=== PATIENT | male | born 1985 | race Caucasian/White ===

== ENCOUNTER 2017-07-04 20:20 | Inpatient (IN) | payer BC, OTHER ==
[~2017-07-04] VITALS: Ht 177.8 cm; Wt 99.8 kg
[2017-07-04 20:55] VITALS: BP 137/80
[2017-07-04] MEDS ORDERED: DICYCLOMINE HCL 20 MG TABLET PO PRN (21:00)
[2017-07-04] MEDS ORDERED: LOPERAMIDE HCL 2 MG CAPSULE PO PRN ×2 (21:00)
[2017-07-04] MEDS ORDERED: MAGNESIUM HYDROXIDE 30 ML LIQUID UDC PO PRN (21:00)
[2017-07-04] MEDS ORDERED: MIRALAX 17 GM POWD.PACK PO PRN (21:00)
[2017-07-04] MEDS ORDERED: MAG HYDROX/AL HYDROX/SIMETH 30 ML LIQUID UDC PO PRN (21:00)
[2017-07-04] MEDS ORDERED: IBUPROFEN 400 MG TABLET PO PRN (21:00)
[2017-07-04] MEDS ORDERED: ACETAMINOPHEN 325 MG TABLET PO PRN (21:00)
[2017-07-04] MEDS ORDERED: ONDANSETRON ODT 4 MG TAB.RAPDIS SL PRN (21:00)
[2017-07-04] MEDS ORDERED: BUPRENORPHINE HCL 2 MG TAB.SUBL SL PRN (21:00)
[2017-07-04] MEDS ORDERED: ONDANSETRON 4 MG/2 ML VIAL IM PRN (21:00)
[2017-07-04] MEDS ORDERED: AZITHROMYCIN IV 500 MG in IV DEXTROSE 5% 250 ML IV ONE (21:15)
[2017-07-04] MEDS ORDERED: CEFTRIAXONE 1 G in IV DEXTROSE 5% 50 ML IV ONE (22:00)
[2017-07-04] MEDS ORDERED: CEFTRIAXONE 1 G VIAL ONE (22:12)
[2017-07-04] MEDS ORDERED: AZITHROMYCIN 500 MG VIAL IV ONE (22:13)
[2017-07-04] MEDS: diphenhydrAMINE 50 MG CAPSULE PO PRN (22:43)
[2017-07-04 22:56] LABS: ETHANOL < 3 MG/DL (0-0)
[2017-07-04 22:58] LABS: BASOPHILS % (AUTO) 0.3 % (0.0-2.0); EOSINOPHILS # (AUTO) 0.4 K/uL (0.0-0.7); EOSINOPHILS % (AUTO) 3.5 % (0.0-7.0); HEMATOCRIT 33.2 % (36.7-47.1); HEMOGLOBIN 11.7 g/dL (12.5-16.3); LYMPHOCYTES # (AUTO) 1.4 K/uL (20.0-40.0); LYMPHOCYTES % (AUTO) 12.6 % (20.5-51.5); MEAN CORPUSCULAR HEMOGLOBIN 28.3 uug (23.8-33.4); MEAN CORPUSCULAR HGB CONC 35 g/dL (32.5-36.3); MEAN CORPUSCULAR VOLUME 80.8 fL (73.0-96.2); MONOCYTES # (AUTO) 0.7 K/uL (2.0-10.0); MONOCYTES % (AUTO) 6.5 % (0.0-11.0); NEUTROPHILS # (AUTO) 8.8 K/uL (1.8-8.9); NEUTROPHILS % (AUTO) 77.1 % (38.5-71.5); PLATELET COUNT (AUTO) 185 K/uL (152-348); RED BLOOD CELL COUNT(AUTO) 4.11 MIL/uL (4.06-5.63); WHITE BLOOD COUNT (AUTO) 11.4 K/uL (3.6-10.2)
[2017-07-04 23:10] LABS: ALANINE AMINOTRANSFERASE 87 U/L (16-63); ALKALINE PHOSPHATASE 116 U/L (50-136); AMYLASE 58 U/L (25-115); ASPARTATE AMINOTRANSFERASE 83 U/L (15-37); BILIRUBIN,TOTAL 1.1 mg/dL (0.2-1.0); CARBON DIOXIDE 27 mmol/L (21-32); CHLORIDE 93 mmol/L (98-107); GLUCOSE 101 mg/dL (74-106); LIPASE 131 U/L (73-393); POTASSIUM 3.5 mmol/L (3.5-5.1); TOTAL PROTEIN, SERUM 7.7 g/dL (6.4-8.2); UREA NITROGEN, BLOOD 9 mg/dL (7-18)
[2017-07-04] MEDS ORDERED: NICOTINE POLACRILEX 4 MG GUM-PK OF TEN BC PRN (23:15)
[2017-07-04] MEDS: CLONIDINE HCL 0.1 MG TABLET PO PRN (23:23)
[2017-07-05] VITALS: BP 116/65
[2017-07-05] MEDS ORDERED: LORAZEPAM 1 MG TABLET PO ONE (00:30)
[2017-07-05 01:07] LABS: *AMPHETAMINE, URINE NEGATIVE (NEGATIVE); *BARBITURATE, URINE NEGATIVE (NEGATIVE); *CANNABINOID, URINE NEGATIVE (NEGATIVE); *COCCAINE, URINE NEGATIVE (NEGATIVE); *OPIATE, URINE POSITIVE (NEGATIVE); *PHENCYCLIDINE SCREEN,URINE NEGATIVE (NEGATIVE)
[2017-07-05] MEDS ORDERED: FLUO40CA8 PO (01:31)
[2017-07-05 04:00] VITALS: BP 115/64
[2017-07-05 08:00] VITALS: BP 105/64
[2017-07-05] MEDS ORDERED: TUBERCULIN,PURIF.PROT.DERIV. 5 TU/0.1 ML TEST ID ONE (09:00)
[2017-07-05] MEDS: MULTIVITAMINS,THERAPEUTIC TABLET PO SCH (09:38)
[2017-07-05] MEDS ORDERED: CEFTRIAXONE 1 G in IV DEXTROSE 5% 50 ML IV SCH ×2 (10:00→22:00)
[2017-07-05] MEDS ORDERED: NICOTINE 14 MG/24HR PATCH TD PRN (10:30)
[2017-07-05] MEDS ORDERED: IBUPROFEN 600 MG TABLET PO PRN (10:45)
[2017-07-05] MEDS ORDERED: AZITHROMYCIN IV 500 MG in IV DEXTROSE 5% 250 ML IV SCH ×2 (11:00→21:00)
[2017-07-05] MEDS: FLUOXETINE HCL 20 MG CAPSULE PO SCH (11:56)
[2017-07-05 12:00] VITALS: BP 127/76
[2017-07-05 16:00] VITALS: BP 103/68
[2017-07-05] MEDS: CLONIDINE HCL 0.1 MG TABLET PO PRN (16:34)
[2017-07-05] MEDS: HYDROXYZINE PAMOATE 25 MG CAPSULE PO PRN ×2 (16:34→23:27)
[2017-07-05 20:00] VITALS: BP 111/67
[2017-07-05] MEDS: LEVOFLOXACIN 750 MG TABLET PO SCH (21:19)
[2017-07-05] MEDS: LACTOBACILLUS RHAMNOSUS GG 1 EACH CAPSULE PO SCH (21:19)
[2017-07-05] MEDS: METHOCARBAMOL 750 MG TABLET PO PRN (23:27)
[2017-07-05] MEDS: diphenhydrAMINE 50 MG CAPSULE PO PRN (23:27)
[2017-07-06] VITALS: BP 99/66
[2017-07-06 04:00] VITALS: BP 102/61
[2017-07-06] MEDS ORDERED: HYDROXYZINE PAMOATE 25 MG CAPSULE PO PRN (07:00)
[2017-07-06 08:16] VITALS: BP 100/52
[2017-07-06] MEDS: MULTIVITAMINS,THERAPEUTIC TABLET PO SCH (09:38)
[2017-07-06] MEDS: FLUOXETINE HCL 20 MG CAPSULE PO SCH (09:38)
[2017-07-06] MEDS: METHOCARBAMOL 750 MG TABLET PO PRN (09:38)
[2017-07-06] MEDS: HYDROXYZINE PAMOATE 25 MG CAPSULE PO PRN (09:38)
[2017-07-06] MEDS: LACTOBACILLUS RHAMNOSUS GG 1 EACH CAPSULE PO SCH ×2 (09:38→20:23)
[2017-07-06 10:33] LABS: HEPATITIS B SURFACE AG Negative (Negative)
[2017-07-06 12:43] VITALS: BP 100/58
[2017-07-06] MEDS: CLONIDINE HCL 0.1 MG TABLET PO SCH ×3 (13:00→20:24)
[2017-07-06] MEDS ORDERED: GABAPENTIN 300 MG CAPSULE PO SCH (13:00)
[2017-07-06] MEDS ORDERED: LORAZEPAM 1 MG TABLET PO PRN (15:45)
[2017-07-06] MEDS ORDERED: BUPRENORPHINE HCL 2 MG TAB.SUBL SL PRN (15:45)
[2017-07-06] MEDS ORDERED: BENZOCAINE/MENTH/CETYLPYRD LOZENGE MM PRN (16:30)
[2017-07-06] MEDS ORDERED: GUAIFENESIN LA 600 MG TABLET.SA PO PRN (16:30)
[2017-07-06 16:58] VITALS: BP 105/61
[2017-07-06 20:00] VITALS: BP 112/61
[2017-07-06] MEDS: GABAPENTIN 300 MG CAPSULE PO SCH (20:23)
[2017-07-06] MEDS: LEVOFLOXACIN 750 MG TABLET PO SCH (20:23)
[2017-07-06] MEDS: diphenhydrAMINE 50 MG CAPSULE PO PRN (20:24)
[2017-07-07] VITALS: BP 97/56
[2017-07-07 04:00] VITALS: BP 93/55
[2017-07-07 08:00] VITALS: BP 104/60
[2017-07-07 08:39] LABS: EOSINOPHILS # (AUTO) 0.8 K/uL (0.0-0.7); MONOCYTES # (AUTO) 0.5 K/uL (2.0-10.0)
[2017-07-07 08:45] LABS: BILIRUBIN,DIRECT 0.1 mg/dL (0.0-0.2); BILIRUBIN,TOTAL 0.3 mg/dL (0.2-1.0); MAGNESIUM 2.4 mg/dL (1.8-2.4); POTASSIUM 3.4 mmol/L (3.5-5.1); TOTAL PROTEIN, SERUM 6.8 g/dL (6.4-8.2)
[2017-07-07 08:46] LABS: BILIRUBIN,DIRECT 0.1 mg/dL (0.0-0.2); BILIRUBIN,TOTAL 0.3 mg/dL (0.2-1.0)
[2017-07-07 08:48] LABS: BASOPHILS % (AUTO) 0.5 % (0.0-2.0); EOSINOPHILS % (AUTO) 9.5 % (0.0-7.0); HEMOGLOBIN 12.9 g/dL (12.5-16.3); LYMPHOCYTES % (AUTO) 23.6 % (20.5-51.5); MEAN CORPUSCULAR HEMOGLOBIN 28.4 uug (23.8-33.4); MEAN CORPUSCULAR HGB CONC 35 g/dL (32.5-36.3); MEAN CORPUSCULAR VOLUME 81.2 fL (73.0-96.2); MONOCYTES % (AUTO) 6.4 % (0.0-11.0); RED BLOOD CELL COUNT(AUTO) 4.54 MIL/uL (4.06-5.63)
[2017-07-07 08:57] LABS: HEMATOCRIT 36.9 % (36.7-47.1); PLATELET COUNT (AUTO) 263 K/uL (152-348); WHITE BLOOD COUNT (AUTO) 8.3 K/uL (3.6-10.2)
[2017-07-07] MEDS: GABAPENTIN 300 MG CAPSULE PO SCH ×3 (09:04→21:49)
[2017-07-07] MEDS: MULTIVITAMINS,THERAPEUTIC TABLET PO SCH (09:05)
[2017-07-07] MEDS: LACTOBACILLUS RHAMNOSUS GG 1 EACH CAPSULE PO SCH ×2 (09:05→21:49)
[2017-07-07] MEDS: FLUOXETINE HCL 20 MG CAPSULE PO SCH (09:05)
[2017-07-07] MEDS: CLONIDINE HCL 0.1 MG TABLET PO SCH ×2 (09:05→21:00)
[2017-07-07 12:00] VITALS: BP 94/47
[2017-07-07] MEDS ORDERED: POTASSIUM CHLORIDE 20 MEQ TAB.PRT.SR PO ONE (13:00)
[2017-07-07] MEDS: METHOCARBAMOL 750 MG TABLET PO PRN ×2 (13:40→13:41)
[2017-07-07] MEDS: HYDROXYZINE PAMOATE 25 MG CAPSULE PO PRN ×2 (13:41→21:49)
[2017-07-07 16:00] VITALS: BP 105/60
[2017-07-07] MEDS ORDERED: LEVO750T21 PO (18:07)
[2017-07-07] MEDS ORDERED: LACT1CAP57 PO (18:07)
[2017-07-07] MEDS ORDERED: METH-406 PO (18:07)
[2017-07-07] MEDS ORDERED: HYDR-3895 PO (18:07)
[2017-07-07] MEDS ORDERED: CLON0.1T14 PO (18:07)
[2017-07-07] MEDS ORDERED: NICO4GUM38 BC (18:07)
[2017-07-07] MEDS ORDERED: DICY20TA28 PO (18:07)
[2017-07-07] MEDS ORDERED: DIPH50CA37 PO (18:07)
[2017-07-07] MEDS ORDERED: IBUP-1955 PO (18:07)
[2017-07-07] MEDS ORDERED: GABA-534 PO (18:07)
[2017-07-07 20:00] VITALS: BP 98/58
[2017-07-07] MEDS: diphenhydrAMINE 50 MG CAPSULE PO PRN (21:49)
[2017-07-07] MEDS: LEVOFLOXACIN 750 MG TABLET PO SCH (21:50)
[2017-07-08] VITALS: BP 90/54
[2017-07-08 04:00] VITALS: BP 109/62
[2017-07-08 08:03] VITALS: BP 123/73
[2017-07-08 08:11] VITALS: BP 123/73
[2017-07-08] MEDS: GABAPENTIN 300 MG CAPSULE PO SCH (08:11)
[2017-07-08] MEDS: CLONIDINE HCL 0.1 MG TABLET PO SCH (08:11)
[2017-07-08] MEDS: FLUOXETINE HCL 20 MG CAPSULE PO SCH (08:11)
[2017-07-08] MEDS: LACTOBACILLUS RHAMNOSUS GG 1 EACH CAPSULE PO SCH (08:11)
[2017-07-08] MEDS: MULTIVITAMINS,THERAPEUTIC TABLET PO SCH (08:11)
== END 2017-07-08 11:30 | disposition home or self-care (01) | DRG 895 ==
LOC: SRC 20:20
PROVIDERS: ADMIT Internal Medicine; ATTEND Internal Medicine
PROC: HZ2ZZZZ Detoxification Services for Substance Abuse Treatment (ICD-10-PCS; principal; 2017-07-04)
PROC: HZ31ZZZ Individual Counseling for Substance Abuse Treatment, Behavioral (ICD-10-PCS; 2017-07-07)
DX: F11.23 Opioid dependence with withdrawal (principal); J18.9 Pneumonia, unspecified organism; F33.2 Major depressive disorder, recurrent severe without psychotic features; E87.8 Other disorders of electrolyte and fluid balance, not elsewhere classified; E87.1 Hypo-osmolality and hyponatremia; F17.210 Nicotine dependence, cigarettes, uncomplicated; R09.02 Hypoxemia; Z81.1 Family history of alcohol abuse and dependence; F10.21 Alcohol dependence, in remission; F41.9 Anxiety disorder, unspecified; E86.1 Hypovolemia; E87.6 Hypokalemia; D64.9 Anemia, unspecified; Z79.899 Other long term (current) drug therapy; R73.9 Hyperglycemia, unspecified; R74.0 Nonspecific elevation of levels of transaminase and lactic acid dehydrogenase [LDH]
CPT/HCPCS: 36415; 71045; 80307; 80361; 83690; 83735; 84443; 85025; 86592; 86705; 86803; 87070; 87340; 87400; 87806; G0480; J0456; J0696; J7060; Q0163